=== PATIENT | female | born 2000 | race Caucasian/White ===

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

== ENCOUNTER 2019-12-09 17:07 | Emergency (ER) | payer OTHER ==
[~2019-12-09] VITALS: Ht 162.6 cm; Wt 85.0 kg
[~2019-12-09 17:07] MED LIST changes: +NAPROSYN500 MG PO; +ZOFRAN ODT4 MG PO
[2019-12-09 18:50] VITALS: BP 110/74
== END 2019-12-09 18:50 | disposition home or self-care (01) | DRG 605 ==
LOC: ED 17:07
DX: S60.222A Contusion of left hand, initial encounter (principal); W01.0XXA Fall on same level from slipping, tripping and stumbling without subsequent striking against object, initial encounter

== ENCOUNTER 2021-11-03 19:09 | Emergency (ER) | payer OTHER ==
[~2021-11-03] VITALS: Ht 162.6 cm; Wt 70.0 kg
[2021-11-03 19:54] LABS: URINE BILIRUBIN - DIPSTICK NEGATIVE (NEGATIVE); URINE BLOOD DIPSTICK NEGATIVE (NEGATIVE); URINE COLOR YELLOW; URINE GLUCOSE - DIPSTICK NEGATIVE (NEGATIVE); URINE KETONE NEGATIVE (NEGATIVE); URINE LEUK ESTERASE NEGATIVE (NEGATIVE); URINE PH 5.5 (4.5-8.0); URINE PROTEIN - DIPSTICK NEGATIVE (NEG-TRACE); URINE SPECIFIC GRAVITY >=1.030; URINE UROBILINOGEN - DIPSTICK 0.2 E.U./dL (0.2)
[2021-11-03 19:56] LABS: URINE NITRITE - DIPSTICK NEGATIVE (Negative)
[2021-11-03] MEDS ORDERED: ONDANSETRON4 MG PO (20:56)
[2021-11-03 21:28] VITALS: BP 117/69
== END 2021-11-03 22:30 | disposition home or self-care (01) | DRG 392 ==
LOC: ED 19:09
PROVIDERS: Nurse Practitioner
DX: R11.2 Nausea with vomiting, unspecified (principal); R10.10 Upper abdominal pain, unspecified

== ENCOUNTER 2021-11-14 12:05 | Emergency (ER) | payer OTHER ==
[~2021-11-14] VITALS: Ht 162.6 cm; Wt 70.0 kg
[2021-11-14 12:15] VITALS: BP 110/81
[2021-11-14 12:19] VITALS: BP 110/81
[2021-11-14] MEDS ORDERED: CIPROFLOXACN500 MG PO (12:22)
== END 2021-11-14 13:11 | disposition home or self-care (01) | DRG 316 ==
LOC: ED 12:05
DX: T82.838A Hemorrhage due to vascular prosthetic devices, implants and grafts, initial encounter (principal); F17.290 Nicotine dependence, other tobacco product, uncomplicated; Y84.8 Other medical procedures as the cause of abnormal reaction of the patient, or of later complication, without mention of misadventure at the time of the procedure